=== PATIENT | female | born 1985 | race Caucasian/White ===

== ENCOUNTER → 2017-01-05 | Outpatient (CLI) | payer BC ==
[~2017-01-05] MED LIST: CLON-412 PO; FLOM5CAP PO; HYDR50TA70 PO; LEXA1TAB2 PO
[2017-01-05 14:45] LABS: INR 1.01
== END ==
LOC: MERGE 09:59 → M SMT 09:59
PROVIDERS: ATTEND Nurse Practitioner Women's Health
DX: N20.0 Calculus of kidney (principal)

== ENCOUNTER 2017-01-12 08:05 | Day surgery (SDC) | payer BC ==
[~2017-01-12] VITALS: Ht 172.7 cm; Wt 79.4 kg
[2017-01-12] MEDS ORDERED: PROPOFOL 200 MG/20 ML VIAL As Ordered ONE ×2 (08:26→09:22)
[2017-01-12] MEDS ORDERED: MIDAZOLAM INJ 2 MG/2 ML VIAL (J2250) As Ordered ONE (08:26)
[2017-01-12] MEDS ORDERED: fentaNYL 100 MCG/2 ML INJECTION (J3010) As Ordered ONE (08:26)
[2017-01-12] MEDS ORDERED: LIDOCAINE 2% INJ 100 MG/5 ML SDV (FOR ANES.) As Ordered ONE (08:26)
[2017-01-12] MEDS ORDERED: ceFAZolin 2 GM/D5W 50 ML IV BAG (J0690) As Ordered ONE (08:42)
[2017-01-12] MEDS ORDERED: LR 1,000 ML IV SCH ×2 (08:45→10:30)
[2017-01-12] MEDS ORDERED: PERCOCET 5MG/325MG TAB As Ordered ONE (10:15)
[2017-01-12] MEDS: PERCOCET 5MG/325MG TAB PO PRN ×2 (10:21→11:00)
[2017-01-12 10:35] VITALS: BP 134/95
--- NOTE | 2017-01-12 15:10 | RO ---
DATE OF PROCEDURE: 01/12/2017 PREOPERATIVE DIAGNOSIS: Right nephrolithiasis. POSTOPERATIVE DIAGNOSIS: Right nephrolithiasis. PROCEDURE: Right electro shockwave lithotripsy (ESWL). SURGEON: Dr. Lotus Acuna ANESTHESIA: MAC. MEDICATIONS: Ancef 2 grams preoperatively. INDICATIONS FOR PROCEDURE: The patient is a 31-year-old female who was seen with right flank pain. A CT scan of the abdomen and pelvis done on 12/16/2016 showed two right renal stones, one measuring 5.5 mm and one 3 mm. There were no stones in the left kidney. A KUB was done and one of the stones was very well seen. After discussing all different options, alternatives, risks, benefits this patient decided to proceed with a right ESWL. DESCRIPTION OF PROCEDURE: The patient was brought into the operating room and thromboembolic deterrent stockings (TEDS) were in place. She was given preoperative antibiotics. Anesthesia was given and using both fluoroscopy and ultrasound, the 5.5 mm stone was well visualized but we could not find the 3 mm stone with certainty. It was decided therefore, just to treat the 5.5 mm stone. This was placed in the cross-hairs of the machine and the patient received a total of 2500 shockwaves with a total power level of 20. She tolerated the procedure well.
--- NOTE | 2017-01-13 01:38 | REP ---
Clinical: Right renal stone. Technique: Single supine view of the abdomen and pelvis. Findings: A 3 - 4 mm calculus is identified overlying the lower pole right kidney. Further urinary tract calcifications cannot be excluded. Bowel gas pattern is nonspecific. No organomegaly. No abnormal calcifications. Skeletal structures are intact. IUD in central pelvic position. Impression: Right intrarenal calculus. Signed by Charles Daigle MD 01/13/2017 01:30 A
== END 2017-01-12 11:15 | disposition home or self-care (01) ==
LOC: M SDC 08:05 → M RAD 08:05 → M SDC 11:15
PROVIDERS: ATTEND Specialist
DX: N20.0 Calculus of kidney (principal); F32.9 Major depressive disorder, single episode, unspecified; K58.9 Irritable bowel syndrome, unspecified; D68.2 Hereditary deficiency of other clotting factors; L30.9 Dermatitis, unspecified; F41.9 Anxiety disorder, unspecified; N80.9 Endometriosis, unspecified; Z88.8 Allergy status to other drugs, medicaments and biological substances; Z79.899 Other long term (current) drug therapy; Z97.5 Presence of (intrauterine) contraceptive device; Z87.891 Personal history of nicotine dependence
CPT/HCPCS: 50590; 74000; J0690; J2250; J3010

== ENCOUNTER → 2017-01-31 | Outpatient (CLI) | payer BC ==
[2017-01-31 11:57] LABS: CONTROL LINE UCG INT CTR LINE PRESENT
[2017-01-31 12:47] LABS: ALBUMIN 4.2 GM/DL (3.2-5.2); ALBUMIN/GLOBULIN RATIO 1.27 (1.00-1.93); BILIRUBIN,DIRECT 0.1 MG/DL (0.0-0.2); BILIRUBIN,TOTAL 0.5 MG/DL (0.2-1.0); TOTAL PROTEIN 7.5 GM/DL (6.4-8.2)
== END ==
LOC: M LAB 11:12
PROVIDERS: ATTEND Nurse Practitioner Family
DX: F11.20 Opioid dependence, uncomplicated (principal)

== ENCOUNTER → 2018-03-15 | Outpatient (CLI) | payer OTHER ==
[2018-03-15 14:00] LABS: BASO % 0.4 % (0.0-1.0); EOS % 0.4 % (0.0-3.0); HEMATOCRIT 39.5 % (36.0-47.0); HEMOGLOBIN 13.5 g/dl (12.0-15.5); IMMATURE GRANULOCYTE % 0.5 % (0-3.0); LYMPH # 1.7 10^3/uL (1.5-4.5); LYMPH % 20.2 % (24.0-44.0); MEAN CORPUSCULAR HEMOGLOBIN 29.6 pg (27.0-33.0); MEAN CORPUSCULAR HGB CONC 34.2 g/dl (32.0-36.5); MEAN CORPUSCULAR VOLUME 86.6 fl (80.0-96.0); MONO # 0.6 10^3/uL (0.0-0.8); MONO % 6.7 % (0.0-5.0); NEUTROPHILS # 6.2 10^3/uL (1.8-7.7); NEUTROPHILS % 71.8 % (36.0-66.0); PLATELET COUNT, AUTOMATED 220 10^3/uL (150-450); RED BLOOD COUNT 4.56 10^6/uL (4.00-5.40); RED CELL DISTRIBUTION WIDTH 12.7 % (11.5-14.5); WHITE BLOOD COUNT 8.6 10^3/uL (4.0-10.0)
[2018-03-15 16:04] LABS: CHLAMYDIA DNA AMPLIFICATION NEGATIVE (NEGATIVE); GC DNA AMPLIFICATION NEGATIVE (NEGATIVE)
[2018-03-16 12:18] LABS: HEPATITIS C VIRUS ABY INDEX 0.1 INDEX (<0.8)
[2018-03-16 12:18] LABS: HBsAg Prenatal NEGATIVE (NEGATIVE); HIV 1&2 SCREEN CENTAUR NEGATIVE (NEGATIVE); RUBELLA IgG QUALITATIVE IMMUNE (IMMUNE)
== END ==
LOC: M SMT 09:44
DX: Z36.89 Encounter for other specified antenatal screening (principal)
CPT/HCPCS: 86762

== ENCOUNTER → 2018-06-04 | Outpatient (REF) | payer BC, OTHER ==
[~2018-06-04] MED LIST changes: +FLOM0.4C39 PO; -FLOM5CAP PO
[2018-06-04 13:52] LABS: AMORPHOUS SEDIMENT SMALL (NEGATIVE); APPEARANCE, URINE HAZY (CLEAR); BACTERIA, URINE AUTO 2+ (NEGATIVE); BILIRUBIN, URINE AUTO NEGATIVE (NEGATIVE); BLOOD, URINE BLOOD NEGATIVE (NEGATIVE); COLOR, URINE YELLOW (YELLOW); GLUCOSE, URINE (UA) AUTO NEGATIVE (NEGATIVE); KETONE, URINE AUTO 1+ mg/dL (NEGATIVE); LEUKOCYTE ESTERASE, URINE AUTO 1+ (NEGATIVE); MUCUS, URINE SMALL (NEGATIVE); NITRITE, URINE AUTO NEGATIVE (NEGATIVE); PROTEIN, URINE AUTO NEGATIVE (NEGATIVE); RBC, URINE AUTO 1 /HPF (0-3); SPECIFIC GRAVITY URINE AUTO 1.012 (1.002-1.035); SQUAMOUS EPITHELIAL CELL UR AU 3 /HPF (0-6); WBC, URINE AUTO 2 /HPF (0-3)
== END ==
LOC: M SMT 13:16
PROVIDERS: ATTEND Nurse Practitioner Women's Health
DX: N13.39 Other hydronephrosis (principal)

== ENCOUNTER → 2018-06-22 | Outpatient (CLI) | payer OTHER ==
--- NOTE | 2018-06-22 10:30 | REP ---
Urinary tract sonography: History: patient. 27 weeks. Hydronephrosis. Evaluate for worsening hydro and check ureteral jets. Comparison sonography is from June 13, 2018 done at [facility]. Findings: Today's sonography documents heart rate at the time of exam at 157 beats per minute. There is mild right-sided hydronephrosis noted similar in degree to the comparison sonography June 13, 2018. Renal cortical echogenicity pattern is slightly increased on the right isoechoic with liver. Right kidney measures 13.3 x 5.9 x 5.0 cm. Left kidney parenchyma is normal in echogenicity. Left kidney dimensions are 13.3 x 4.8 x 5.1 cm. No left-sided hydronephrosis is seen. Emptying ureteral jets are observed bilaterally on color Doppler interrogation of the bladder lumen. Calculated bladder volume is 331 mL. Impression: Very mild right-sided hydronephrosis essentially unchanged from June 13, 2018 sonographic images. Bilateral emptying ureteral jets are present. No hydronephrosis on the left. Electronically Signed by Carlos Manuel Martinez MD 06/22/2018 10:40 A
== END ==
LOC: M SMT 08:23
PROVIDERS: ATTEND Urology
DX: N13.30 Unspecified hydronephrosis (principal)

== ENCOUNTER → 2018-08-25 | Outpatient (REF) | LOC: M LAB LCGH 15:35 | PROVIDERS: ATTEND Obstetrics & Gynecology | DX: K35.80 Unspecified acute appendicitis (principal) ==

== ENCOUNTER → 2019-07-29 | Outpatient (REF) | payer OTHER ==
[2019-07-29 14:14] LABS: APPEARANCE, URINE HAZY (CLEAR); BACTERIA, URINE AUTO 1+ (NEGATIVE); BILIRUBIN, URINE AUTO NEGATIVE (NEGATIVE); BLOOD, URINE BLOOD NEGATIVE (NEGATIVE); COLOR, URINE YELLOW (YELLOW); GLUCOSE, URINE (UA) AUTO NEGATIVE (NEGATIVE); KETONE, URINE AUTO NEGATIVE (NEGATIVE); LEUKOCYTE ESTERASE, URINE AUTO NEGATIVE (NEGATIVE); NITRITE, URINE AUTO NEGATIVE (NEGATIVE); PROTEIN, URINE AUTO NEGATIVE (NEGATIVE); RBC, URINE AUTO 0 /HPF (0-3); SPECIFIC GRAVITY URINE AUTO 1.019 (1.002-1.035); SQUAMOUS EPITHELIAL CELL UR AU 3 /HPF (0-6); UROBILINOGEN, URINE AUTO 0.2 mg/dL (0.0-2.0); WBC, URINE AUTO 0 /HPF (0-3)
== END ==
LOC: M SMT 13:17
PROVIDERS: ATTEND Urology
DX: R30.0 Dysuria (principal); R10.9 Unspecified abdominal pain

== ENCOUNTER → 2020-05-06 | Outpatient (CLI) | payer SELFPAY | LOC: M LABSMTC 13:53 | PROVIDERS: ATTEND Pediatrics | DX: Z20.822 Contact with and (suspected) exposure to COVID-19 (principal) ==

== ENCOUNTER 2021-04-14 18:00 | Emergency (ER) | payer OTHER ==
[~2021-04-14] VITALS: Ht 172.7 cm; Wt 65.9 kg
[2021-04-14 18:02] VITALS: BP 127/80
[2021-04-14] MEDS ORDERED: ADDE30CA3 PO (18:16)
[2021-04-14] MEDS ORDERED: ZOLO100T (18:16)
[2021-04-14] MEDS ORDERED: ALEV220T22 PO (18:16)
== END 2021-04-14 19:21 | disposition left against medical advice (07) ==
LOC: M ED 18:00
DX: Z53.29 Procedure and treatment not carried out because of patient's decision for other reasons (principal)

== ENCOUNTER 2021-05-03 16:13 | Emergency (ER) | payer BC, OTHER ==
[~2021-05-03] VITALS: Ht 172.7 cm; Wt 65.9 kg
[~2021-05-03 16:13] MED LIST changes: +ADDE30CA3 PO; +ALEV220T22 PO; +ZOLO100T
[2021-05-03 21:33] LABS: BASO % 0.3 % (0.0-1.0); EOS % 0.2 % (0.0-3.0); HEMATOCRIT 43.2 % (36.0-47.0); HEMOGLOBIN 14.8 g/dl (12.0-15.5); LYMPH # 3.1 10^3/uL (1.5-5.0); LYMPH % 27.2 % (24.0-44.0); MEAN CORPUSCULAR HGB CONC 34.3 g/dl (32.0-36.5); MEAN CORPUSCULAR VOLUME 87.4 fl (80.0-96.0); MONO # 0.7 10^3/uL (0.0-0.8); NEUTROPHILS # 7.5 10^3/uL (1.5-8.5); NEUTROPHILS % 65.6 % (36.0-66.0); PLATELET COUNT, AUTOMATED 297 10^3/uL (150-450); RED BLOOD COUNT 4.94 10^6/uL (4.00-5.40); WHITE BLOOD COUNT 11.4 10^3/uL (4.0-10.0)
[2021-05-03 21:50] LABS: ERYTHROCYTE SEDIMENTATION RATE 2 mm/hr (0-20)
[2021-05-03 22:09] LABS: BLOOD UREA NITROGEN 12 MG/DL (7-18); CALCIUM LEVEL 9.3 MG/DL (8.5-10.1); CARBON DIOXIDE LEVEL 26 MEQ/L (21-32); CHLORIDE LEVEL 107 MEQ/L (98-107); CREATININE FOR GFR 0.52 MG/DL (0.55-1.30); GLOMERULAR FILTRATION RATE > 60.0 (>60); GLUCOSE, FASTING 99 MG/DL (70-100); MAGNESIUM LEVEL 2.4 MG/DL (1.8-2.4); PHOSPHORUS LEVEL 3.2 MG/DL (2.5-4.9); POTASSIUM SERUM 3.5 MEQ/L (3.5-5.1); RHEUMATOID FACTOR QUANT < 10.0 IU/ML (<15.0); SODIUM LEVEL 139 MEQ/L (136-145); URIC ACID 2.7 MG/DL (2.6-6.0)
[2021-05-03] MEDS ORDERED: PRED20TA (22:10)
[2021-05-03 22:49] VITALS: BP 143/87
== END 2021-05-03 22:50 | disposition home or self-care (01) ==
LOC: M ED 16:13
DX: M13.0 Polyarthritis, unspecified (principal); R21 Rash and other nonspecific skin eruption; Z88.8 Allergy status to other drugs, medicaments and biological substances; Z79.899 Other long term (current) drug therapy

== ENCOUNTER → 2022-05-25 | Outpatient (REF) | payer BC ==
[~2022-05-25] MED LIST changes: +PRED20TA
[2022-05-25 12:00] LABS: APPEARANCE, URINE MANUAL CLEAR (CLEAR); COLOR, URINE MANUAL YELLOW (YELLOW); SPECIFIC GRAVITY,URINE MANUAL 1.005 (1.002-1.035)
[2022-05-25 12:01] LABS: BILIRUBIN, URINE MANUAL NEGATIVE (NEGATIVE); BLOOD URINE MANUAL NEGATIVE (NEGATIVE); GLUCOSE, URINE (UA) MANUAL NEGATIVE (NEGATIVE); KETONE, URINE MANUAL NEGATIVE (NEGATIVE); LEUKOCYTE ESTERASE, URINE MAN NEGATIVE (NEGATIVE); NITRITE, URINE MANUAL NEGATIVE (NEGATIVE); PROTEIN, URINE MANUAL TRACE mg/dL (NEGATIVE); UROBILINOGEN, URINE MANUAL NORMAL (NORMAL)
[2022-05-25 12:24] LABS: RBC, URINE 0-1 /hpf (0-3); SQUAMOUS EPITHELIAL CELL URINE SMALL AMOUNT /hpf (SMALL AMT)
[2022-05-25 12:25] LABS: BACTERIA, URINE MOD AMOUNT; HYALINE CAST, URINE NONE SEEN /lpf (0-1)
== END ==
LOC: M SMT 10:21
PROVIDERS: ATTEND Nurse Practitioner Women's Health
DX: R39.15 Urgency of urination (principal)

== ENCOUNTER → 2022-08-08 | Outpatient (CLI) | payer BC ==
[2022-08-08 20:05] LABS: BASO % 0.2 % (0.0-1.0); HEMATOCRIT 45.8 % (36.0-47.0); LYMPH # 2.1 10^3/uL (1.5-5.0); MEAN CORPUSCULAR HEMOGLOBIN 29.7 pg (27.0-33.0); MEAN CORPUSCULAR HGB CONC 32.8 g/dl (32.0-36.5); MEAN CORPUSCULAR VOLUME 90.7 fl (80.0-96.0); MONO # 0.9 10^3/uL (0.0-0.8); MONO % 6.8 % (2.0-8.0); NEUTROPHILS # 10.1 10^3/uL (1.5-8.5); NEUTROPHILS % 76.4 % (36.0-66.0); PLATELET COUNT, AUTOMATED 389 10^3/uL (150-450); RED BLOOD COUNT 5.05 10^6/uL (4.00-5.40); WHITE BLOOD COUNT 13.2 10^3/uL (4.0-10.0)
[2022-08-08 20:38] LABS: MONO SCRN NEGATIVE (NEGATIVE)
== END ==
LOC: M WUC 15:06
PROVIDERS: ATTEND Nurse Practitioner Family
DX: R05.9 Cough, unspecified (principal); R06.02 Shortness of breath; J06.9 Acute upper respiratory infection, unspecified